=== PATIENT | female | born 2000 | race African-American/Black ===

== ENCOUNTER 2020-02-27 00:04 | Emergency (ER) | payer SELFPAY ==
[~2020-02-27] VITALS: Ht 157.5 cm; Wt 47.6 kg
[2020-02-27 00:16] VITALS: BP 118/77
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
--- NOTE | 2020-02-27 00:22 | NUR ---
ED Nurse Note: All medications administered, pt tolerated well no ss of distress noted.
--- NOTE | 2020-02-27 00:25 | NUR ---
ED Nurse Note: Xray at bedside
[2020-02-27] MEDS ORDERED: HYDROcodone/Acetamin 5/325 tab ORAL ONE (00:30)
--- NOTE | 2020-02-27 01:16 | NUR ---
ED Nurse Note: ERMD at bedside
[2020-02-27] MEDS ORDERED: IBUPROFEN600 M1 ORAL (01:17)
[2020-02-27] MEDS ORDERED: HYDROCODON-ACE1 EA15 ORAL (01:17)
[2020-02-27 01:23] VITALS: BP 118/77
--- NOTE | 2020-02-27 01:23 | NUR ---
ER DISCHARGE NOTE: Patient is cleared to be discharged home per ERMD, pt is aox4, 98% on room air, with stable vital signs. pt was given dc and prescription instructions, pt was able to verbalize understanding, pt id band removed. pt is able to ambulate with steady gait. pt took all belongings.
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
== END 2020-02-27 01:23 | disposition home or self-care (01) ==
LOC: EMR 00:47
DX: S23.41XA Sprain of ribs, initial encounter (principal); Y04.2XXA Assault by strike against or bumped into by another person, initial encounter; Y92.9 Unspecified place or not applicable
CPT/HCPCS: 99283